=== PATIENT | male | born 1930 | race Caucasian/White ===

== ENCOUNTER → 2017-06-16 | Outpatient (CLI) | payer MEDICARE, BC ==
--- NOTE | 2017-06-17 15:18 | EKG ---
Date Performed: 06/16/2017 Time Performed: 13:07:46 PTAGE: 87 years EKG: Sinus rhythm NORMAL ECG NO PREVIOUS TRACING DOCTOR: Yoana Thomas Interpretating Date/Time 06/17/2017 15:17:19
== END ==
LOC: PHPRE 12:33
PROVIDERS: ATTEND Ophthalmology
DX: Z01.810 Encounter for preprocedural cardiovascular examination (principal)
CPT/HCPCS: 93005

== ENCOUNTER → 2017-06-30 | Day surgery (SDC) | payer MEDICARE, BC ==
--- NOTE | 2017-06-19 13:16 | MH ---
cc: SAL BOLTON DATE OF ADMISSION 06/30/2017 ADMISSION DIAGNOSIS Cataract left eye. HISTORY OF PRESENT ILLNESS This 87-year-old white male is coming through [facility] for the purpose of a lens extraction of the left eye with intraocular lens implant under local anesthesia. He has noted decreasing visual acuity interfering with his daily activities and elected to have the above procedure. His best corrected visual acuity in room light is 20/50 -1 in the right eye and 20/70 in the left. PAST MEDICAL HISTORY The patient has a history of: 1. Polio at age 18 2. Sleep apnea 3. 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 4. Postnasal drip PAST SURGICAL HISTORY Includes: 1. Having a neck gland removed at 3. 2. Having melanoma removed from the right forearm. 3. A skin biopsy on the left hand which was benign. MEDICATIONS His daily medications include: 1. Using a C-PAP 2. Juice Plus ALLERGIES HE IS ALLERGIC TO PENICILLIN. SOCIAL HISTORY He smoked 40 years ago and now just has a glass a wine at dinner. FAMILY HISTORY His family history is positive for a grandfather with cataract. REVIEW OF SYSTEMS HEAD: Patient denies severe headaches, dizziness or recent head injury. EARS: Patient has hearing aids for hearing loss. No ear pain, discharge or ringing in the ears. NOSE: Patient has nasal discharge in the morning which he says is postnasal drip secondary to his C-PAP machine. No obstruction or frequent colds. MOUTH AND THROAT: Patient denies soreness of the mouth or tongue, bleeding gums, trouble swallowing, changes in voice or sore throat. NECK: Patient denies neck pain or swelling, limitation of neck movement or neck injury. CARDIOPULMONARY SYSTEM: Denies shortness of breath, orthopnea, chronic cough, sputum production, hemoptysis, chest pain, wheezing, or light-headedness. GI SYSTEM: Patient denies poor appetite, nausea, vomiting, abdominal pain, ulcers, hemorrhoids or change in bowel habits. SYSTEM: The patient denies urinary frequency, dysuria, change in urine color. NERVOUS SYSTEM: Patient denies convulsions, vertigo, stroke, numbness or weakness. PHYSICAL EXAMINATION VITAL SIGNS: Blood pressure is 154/78, pulse 60, respirations 16. HEAD: Normocephalic, atraumatic. NOSE: Without rhinorrhea. THROAT: Clear. NECK: Supple. CHEST: Clear. HEART: Irregular heart beat. ABDOMEN: Without tenderness. EXTREMITIES: Without edema. NEUROLOGIC: Within normal limits. MENTAL STATUS: Within normal limits. EYE EXAMINATION The patient's best corrected visual acuity in room light is 20/50 -1 in the right eye and 20/70 in the left. Visual borden are full to confrontation testing. Extraocular muscle exam reveals full versions with orthophoria at distance and near. Pupils are 2 mm equal, round, and reactive to light without afferent defect. Anterior segment examination reveals an iris nevus at 8 o'clock position in the left eye. Dermatochalasis of the eyelid skin is present. A nuclear sclerotic and posterior cortical cataract is noted in each eye with the cortical changes noted centrally. Intraocular pressure is 29 in the right eye and 28 in the left, this is by applanation tonometry. Dilated fundus exam revealed sharp disks with cup-to-disk ratio 0.3 bilaterally with peripapillary atrophy bilaterally. There is some mild drusen and pigment granularity in the macula of each eye. A posterior vitreous detachment is present bilaterally with vitreous floater in the left eye. Background drusen is noted in each eye. IMPRESSION 1. Cataract, both eyes 2. Posterior vitreous detachment both eyes 3. Dermatochalasis 4. Iris nevus, left eye 5. Glaucoma suspect 6. Macular drusen PLAN Lens extraction of the left eye with intraocular lens implant under local anesthesia through [facility]. Iris retractors may be used as the patient may not dilate fully. The patient has been cleared medically. He has been counseled as to the risks, benefits and alternatives and elected to proceed. I feel that cataract surgery will improve the quality of life and activities of daily living in this patient. MD HOMER Feldman/CHARITO /12:54 PM /1:02 PM
[~2017-06-30] VITALS: Ht 180.3 cm; Wt 73.6 kg
[~2017-06-30] MED LIST: ACETYLCHOLINE CHL OPHT SOLN 1:100 2 ML VIAL ONE; CHLORHEXIDINE GLUCONATE 2 % 1 PACK (2 CLOTHS) TOPICAL PRN; EPINEPHrine HCL PF/SF (1:1000) 1 MG/ML AMP I-OCULAR ONE; HYALURONIDASE/LIDOCAINE/BUPIVACAINE 5 ML SYR LEFT EYE ONE; LACTATED RINGER'S 1000 ML IV PRN; METOPROLOL TARTRATE 25 MG TAB PO PRN; PILOCARPINE HCL 2% OPHT SOLN 15 ML BTL ONE; POVIDONE IODINE 5% (ANTISEPSIS KIT) 4 APPLICATIONS EACH NARE PRN; PROPARACAINE HCL 0.5% OPHT SOLN 15 ML BTL LEFT EYE ONE; PROPOFOL 200 MG/20 ML AMP ONE; SODIUM CHLORID 0.9% 500 ML IV PRN; TOBRAMYCIN/DEXAMETHASONE OPTH OINT 3.5 GM TUBE ONE; VISCOAT OPHT IRRIG SOLN 0.75 ML SYRINGE ONE; acetaZOLAMIDE SEQUELS 500 MG SUSTAINED RELEASE CAP ONE
[2017-06-30] MEDS: CYCLOPENTOLATE HCL 1% OPHT SOLN 2 ML BTL LEFT EYE SCH ×4 (11:15→11:24)
[2017-06-30] MEDS: TROPICAMIDE 1% OPHT SOLN 15 ML BTL LEFT EYE SCH ×4 (11:15→11:24)
[2017-06-30] MEDS: DICLOFENAC SOD 0.1% OPHT SOLN 2.5 ML BTL LEFT EYE SCH ×4 (11:15→11:24)
[2017-06-30] MEDS: GATIFLOXACIN 0.5% OPHT SOLN 2.5 ML BTL LEFT EYE SCH ×4 (11:15→11:24)
[2017-06-30] MEDS: PHENYLEPHRINE HCL 2.5% OPTH SOLN 2 ML BTL LEFT EYE SCH ×4 (11:15→11:24)
[2017-06-30 11:29] VITALS: PULSE 73
[2017-06-30 11:50] VITALS: PULSE 71
[2017-06-30 14:55] VITALS: BP 135/56; PULSE 74; RESP 16; TEMP 97.8; O2SAT 99
--- NOTE | 2017-06-30 15:05 | MP ---
cc: SAL CHARLES DATE OF SURGERY: 06/30/2017 PREOPERATIVE DIAGNOSIS Cataract, left eye. POSTOPERATIVE DIAGNOSIS Cataract, left eye. OPERATION Extracapsular cataract extraction with posterior chamber intraocular lens implant by phacoemulsification, left eye. SURGEON Sal Charles M.D. ANESTHESIA Local. COMPLICATIONS None. INDICATIONS See history and physical previously dictated. OPERATIVE PROCEDURE The patient had adequate retrobulbar and eyelid blocks administered in the holding area and was brought to the operating room. The left eye was prepped and draped in the usual sterile ophthalmic manner. A lid speculum was inserted in the left eye. A 4-0 silk bridle suture was placed through the conjunctiva near the superior rectus muscle and it was tagged to the drape. A fornix-based conjunctival flap was prepared spanning approximately 5 mm in width. Hemostasis was obtained with wet-field cautery. A 3.5 mm groove was made 1 mm from the limbus and dissected up to the limbus in the form of a scleral pocket incision. A stab incision was then made at the 2 o'clock position. Viscoelastic was injected into the anterior chamber. In order to maintain an adequately dilated pupil, it was elected to use iris retractors in this case. Stab incisions were made at the 1 o'clock, 3 o'clock, 5 o'clock, 8 o'clock and 10 o'clock positions. Iris retractors were then inserted through the stab incisions in the peripheral cornea and positioned to enlarge the size of the pupil. The anterior chamber was entered with a 2.75 mm keratome through the scleral pocket incision. A 360 degree continuous curvilinear capsulorrhexis was then performed. Hydrodissection was utilized to divide the nucleus into inner and outer components and to separate the cortex from the capsule. Phacoemulsification was then utilized to remove the nucleus. The outer nuclear layer was removed with irrigation and aspiration and short bursts of ultrasound as necessary. The cortex was removed with the irrigation-aspiration handpiece. The posterior capsule was polished with the capsule polisher. Viscoelastic was injected into the capsular bag. The intraocular lens was inspected and found to be in good condition. The lens utilized was an Han model SA60AT with a power of +18 diopters. The lens was inserted into the capsular bag. The five iris retractors were removed. The viscoelastic in the anterior chamber was then removed with the irrigation-aspiration hand piece. Viscoelastic was also removed from beneath the intraocular lens. The anterior chamber was filled with Miochol-E through the stab incision and pressurized. The wound was checked for leaks at this pressure and normalized pressure and there were none. The 4-0 bridle suture was removed. The conjunctival flap was brought down over the wound and secured with cautery. Pilocarpine 2% eye drops were instilled topically. The lid speculum was removed. TobraDex ophthalmic ointment was applied. The eye was double patched and shielded. The patient tolerated the procedure well and left the Operating Room in satisfactory condition. MD HOMER Feldman/TODD /2:19 PM /2:59 PM
== END | disposition home or self-care (01) ==
LOC: PHSDC 10:23
PROVIDERS: ATTEND Ophthalmology
DX: H26.9 Unspecified cataract (principal); D31.42 Benign neoplasm of left ciliary body; H02.839 Dermatochalasis of unspecified eye, unspecified eyelid; H43.813 Vitreous degeneration, bilateral; H35.369 Drusen (degenerative) of macula, unspecified eye; G47.30 Sleep apnea, unspecified; Z87.891 Personal history of nicotine dependence; Z88.0 Allergy status to penicillin
CPT/HCPCS: 00142; 66984; J0171; J7040; V2632

== ENCOUNTER → 2017-09-01 | Day surgery (SDC) | payer MEDICARE, BC ==
--- NOTE | 2017-08-27 15:26 | MH ---
cc: SAL BOLTON DATE OF ADMISSION: 09/01/2017 ADMISSION DIAGNOSIS Cataract right eye. HISTORY OF PRESENT ILLNESS This 87-year-old white male is coming through [facility] for the purpose of a lens extraction of the right eye with intraocular lens implant under local anesthesia. He had a similar procedure on his left eye in June of 2017 and did well postoperatively and now is requesting cataract surgery for his right eye. His best corrected visual acuity is 20/50 -1 in the right eye and 20/25 -2 in the left. PAST MEDICAL HISTORY The patient has a history of - 1. Sleep apnea. 2. Melanoma of the right arm. 3. Postnasal drip. 4. History of polio at age 18. PAST SURGICAL HISTORY 1. A neck gland removed at age [age]. 2. The melanoma being removed from the right forearm. 3. Skin biopsy of the left hand which was benign. 4. Cataract surgery on the left eye in June 2017. DAILY MEDICATIONS C-PAP. Juice Plus. ALLERGIES PENICILLIN. NEOSPORIN. SOCIAL HISTORY The patient smoked 40 years ago and has a glass of wine at supper. FAMILY HISTORY Positive for grandfather with cataract. REVIEW OF SYSTEMS HEAD: Patient denies severe headaches, dizziness or recent head injury. EARS: The patient has a history of decreased hearing and wears a hearing aid. Patient denies ear pain, discharge or ringing in the ears. NOSE: The patient has a postnasal drip secondary to his CPAP. Patient denies nasal obstruction or frequent colds. MOUTH AND THROAT: Patient denies soreness of the mouth or tongue, bleeding gums, trouble swallowing, changes in voice or sore throat. NECK: Patient denies neck pain or swelling, limitation of neck movement or neck injury. CARDIOPULMONARY SYSTEM: Patient denies shortness of breath, orthopnea, chronic cough, sputum production, hemoptysis, chest pain, wheezing, palpitations or light-headedness. GI SYSTEM: Patient denies poor appetite, nausea, vomiting, abdominal pain, ulcers, hemorrhoids or change in bowel habits. SYSTEM: The patient denies urinary frequency, dysuria, change in urine color. NERVOUS SYSTEM: Patient denies convulsions, vertigo, stroke, numbness or weakness. PHYSICAL EXAMINATION VITAL SIGNS: Blood pressure 128/78, pulse 64, respirations 20. HEAD: Normocephalic, atraumatic. NOSE: Without rhinorrhea. THROAT: Clear. NECK: Supple. CHEST: Clear. HEART: Irregular rhythm. ABDOMEN: Without tenderness. EXTREMITIES: Without edema. NEUROLOGIC: Within normal limits. MENTAL STATUS: Within normal limits. EYE EXAMINATION The patient's best corrected visual acuity is 20/50 -1 in the right eye and 20/25 -2 in the left. Visual borden are full to confrontation testing. Extraocular muscle exam reveals full versions with orthophoria at distance and near. Pupils are 2 mm equal, round, reactive to light without afferent defect. Anterior segment examination reveals a posterior chamber intraocular lens in place in the left eye. There are nuclear sclerotic and 2+ posterior central cortical cataract in the right eye. Intraocular pressure was 28 in the right eye and 22 in the left by applanation tonometry. Dilated fundus exam revealed sharp disks with cup-to-disk ratio of 0.3 bilaterally. There is peripapillary atrophy bilaterally. There is some mild drusen and pigment granularity in the macula of each eye. A posterior vitreous detachment is present bilaterally with floaters in the left eye. There is background drusen present bilaterally. IMPRESSION 1. Cataract right eye. 2. Pseudophakia left eye. 3. Posterior vitreous detachment both eyes with vitreous floaters in the left eye. 4. Background drusen. PLAN Lens extraction of the right eye with intraocular lens implant under local anesthesia through [facility]. Iris retractors may be necessary in this patient who does not dilate well. The patient has been cleared medically. He has been counseled as to the risks, benefits and alternatives and elected to proceed. I feel that cataract surgery will improve the quality of life and activities of daily living in this patient. MD HOMER Feldman/BANDAR /11:26 AM /3:13 PM
[~2017-09-01] VITALS: Ht 180.3 cm; Wt 75.0 kg
[~2017-09-01] MED LIST changes: +DICLOFENAC SOD 0.1% OPHT SOLN 2.5 ML BTL RIGHT EYE SCH; -HYALURONIDASE/LIDOCAINE/BUPIVACAINE 5 ML SYR LEFT EYE ONE; +HYALURONIDASE/LIDOCAINE/BUPIVACAINE 5 ML SYR ONE; +HYALURONIDASE/LIDOCAINE/BUPIVACAINE 5 ML SYR RIGHT EYE ONE; +INSULIN HUMAN REGULAR 1,000 UNITS/10 ML VIAL SQ PRN; -PROPARACAINE HCL 0.5% OPHT SOLN 15 ML BTL LEFT EYE ONE; +PROPARACAINE HCL 0.5% OPHT SOLN 15 ML BTL RIGHT EYE ONE
[2017-09-01 07:40] VITALS: PULSE 78
[2017-09-01] MEDS: TROPICAMIDE 1% OPHT SOLN 15 ML BTL RIGHT EYE SCH ×4 (07:47→07:56)
[2017-09-01] MEDS: PHENYLEPHRINE HCL 2.5% OPTH SOLN 2 ML BTL RIGHT EYE SCH ×4 (07:47→07:56)
[2017-09-01] MEDS: GATIFLOXACIN 0.5% OPHT SOLN 2.5 ML BTL RIGHT EYE SCH ×4 (07:47→07:56)
[2017-09-01] MEDS: CYCLOPENTOLATE HCL 1% OPHT SOLN 2 ML BTL RIGHT EYE SCH ×4 (07:50→07:59)
[2017-09-01 08:52] VITALS: PULSE 77
[2017-09-01 10:13] VITALS: TEMP 98.4
[2017-09-01 10:42] VITALS: BP 144/83; PULSE 77; RESP 16; O2SAT 99
--- NOTE | 2017-09-02 11:37 | MP ---
cc: SAL CHARLES DATE OF SURGERY 09/01/2017 PREOPERATIVE DIAGNOSIS Cataract right eye. POSTOPERATIVE DIAGNOSIS Cataract right eye. OPERATION Extracapsular cataract extraction with posterior chamber intraocular lens implant by phacoemulsification, right eye. SURGEON Sal Charles M.D. ANESTHESIA Local COMPLICATIONS None INDICATIONS See history and physical previously dictated. OPERATIVE PROCEDURE The patient had adequate retrobulbar and eyelid blocks administered in the holding area and was brought to the operating room. The right eye was prepped and draped in the usual sterile ophthalmic manner. A lid speculum was inserted in the right eye. A 4-0 silk bridle suture was placed through the conjunctiva near the superior rectus muscle and it was tagged to the drape. A fornix-based conjunctival flap was prepared spanning approximately 5 mm in width. Hemostasis was obtained with wet-field cautery. A 3.5 mm groove was made 1 mm from the limbus and dissected up to the limbus in the form of a scleral pocket incision. A stab incision was then made at the 2 o'clock position. Viscoelastic was injected into the anterior chamber. The anterior chamber was entered with a 2.75 mm keratome through the scleral pocket incision. A 360 degree continuous curvilinear capsulorrhexis was then performed. Hydrodissection was utilized to divide the nucleus into inner and outer components and to separate the cortex from the capsule. Phacoemulsification was then utilized to remove the nucleus. The outer nuclear layer was removed with irrigation and aspiration and short bursts of ultrasound as necessary. The cortex was removed with the irrigation/aspiration handpiece. The posterior capsule was polished with the capsule polisher. Viscoelastic was injected into the capsular bag. The intraocular lens was inspected and found to be in good condition. The lens utilized was a Han, model number SA60AT with a power of +18.5 diopters. The lens was inserted into the capsular bag. The viscoelastic in the anterior chamber was then removed with the irrigation-aspiration handpiece. Viscoelastic was also removed from beneath the intraocular lens. The anterior chamber was filled with Miochol-E through the stab incision and pressurized. The wound was checked for leaks at this pressure and normalized pressure and there were none. The 4-0 bridle suture was removed. The conjunctival flap was brought down over the wound and secured with cautery. Pilocarpine 2% eye drops were instilled topically. The lid speculum was removed. TobraDex ophthalmic ointment was applied. The eye was double patched and shielded. The patient tolerated the procedure well and left the Operating Room in satisfactory condition. MD HOMER Feldman/CHARITO /10:11 AM /11:21 AM
== END | disposition home or self-care (01) ==
LOC: PHSDC 06:55
PROVIDERS: ATTEND Ophthalmology
DX: H25.811 Combined forms of age-related cataract, right eye (principal); H43.813 Vitreous degeneration, bilateral; H43.392 Other vitreous opacities, left eye; H35.369 Drusen (degenerative) of macula, unspecified eye; G47.30 Sleep apnea, unspecified; R09.82 Postnasal drip; Z86.12 Personal history of poliomyelitis; Z99.81 Dependence on supplemental oxygen; Z85.820 Personal history of malignant melanoma of skin; Z87.891 Personal history of nicotine dependence
CPT/HCPCS: 00142; 66984; J0171; J7040; V2632